=== PATIENT | female | born 1990 | race Caucasian/White ===

== ENCOUNTER 2024-10-04 16:00 | Outpatient (RCR) | payer BC, SELFPAY | END 2024-10-19 23:59 | disposition home or self-care (01) | LOC: PT.CARL 16:00 | DX: M54.6 Pain in thoracic spine (principal) | CPT/HCPCS: 97032; 97110; 97140; 97162 ==

== ENCOUNTER 2024-11-02 15:42 | Outpatient (RCR) | payer BC, SELFPAY | END 2024-11-06 10:50 | disposition home or self-care (01) | LOC: PT.CARL 15:42 | DX: M54.6 Pain in thoracic spine (principal) | CPT/HCPCS: 97110 ==